=== PATIENT | female | born 1960 | race Caucasian/White ===

== ENCOUNTER → 2019-01-23 | Outpatient (CLI) | payer BC ==
[~2019-01-23] MED LIST: APIX5TAB PO; AZEL137S11 NSEACH; CEPH500C PO; CETI10TA17 PO; DOXY100C2 PO; FISH1CAP15 PO; FLUC200T5 PO; FLUT16SP22 NSEACH; IBUP-30 PO; IPRA3AMP31 IH; LISI10TA2 PO; METO-333 PO; MONT10TA24 PO; NABU750T PO; PANT40TA3 PO; PRD20T PO; RT-ALBUTEROL SULF 2.5 MG/3 ML PRE-MIX VIAL INH ONE; SUCR1TAB PO; TRAM50TA2 PO; VITA100033 PO
== END ==
LOC: RT 12:32
PROVIDERS: ATTEND Nurse Practitioner Family
DX: I26.99 Other pulmonary embolism without acute cor pulmonale (principal); G47.10 Hypersomnia, unspecified; E66.9 Obesity, unspecified; Z79.01 Long term (current) use of anticoagulants
CPT/HCPCS: 94060; 94726; 94729